=== PATIENT | male | born 1975 | race Caucasian/White ===

== ENCOUNTER 2022-11-12 08:08 | Day surgery (SDC) | payer BC, OTHER ==
[2022-11-04 12:04] VITALS: BMI 28.2
[2022-11-12] MEDS ORDERED: PROPOFOL 40 ML ONE (09:25)
[2022-11-12 10:09] VITALS: TEMP 98.2
[2022-11-12 10:20] VITALS: BP 112/66; PULSE 70; RESP 18
== END 2022-11-12 10:30 | disposition home or self-care (01) ==
LOC: FASU-ENDO 08:08
PROVIDERS: ATTEND Internal Medicine Gastroenterology
PROC: 0DJD8ZZ Inspection of Lower Intestinal Tract, Via Natural or Artificial Opening Endoscopic (ICD-10-PCS; principal; 2022-11-12 09:33)
DX: Z12.11 Encounter for screening for malignant neoplasm of colon (principal); K57.30 Diverticulosis of large intestine without perforation or abscess without bleeding